=== PATIENT | female | born 1975 | race African-American/Black ===

== ENCOUNTER 2019-03-28 09:23 | Inpatient (IN) | payer MEDICAID, OTHER ==
[~2019-03-28] VITALS: Ht 167.6 cm; Wt 62.7 kg
[~2019-03-28 09:23] MED LIST: PRENAT PO; denies new meds/allergies
[2019-03-28] MEDS ORDERED: ONDANSETRON 4 MG INJ IV STA ×2 (10:18→13:11)
[2019-03-28] MEDS ORDERED: SOD CHLORIDE 0.9% 1,000 ML IV STA (10:18)
[2019-03-28] MEDS ORDERED: morphine 4 MG/ML VIAL IV STA (10:40)
[2019-03-28] MEDS ORDERED: morphine 4 MG/ML VIAL ONE (10:41)
[2019-03-28] MEDS ORDERED: ONDA4TAB8 PO (13:08)
--- NOTE | 2019-03-28 13:10 | ERD ---
ER Documentation Chief Complaint Chief Complaint abdominal pain and vomitting since last night HPI 44-year-old female presents the emergency department complaining of abdominal pain and vomiting. Patient states she was in her usual state of health until last night at which time she began having a nonspecific, visceral type abdominal discomfort. The pain did not localize and did not radiate. Patient had nonbilious, nonbloody emesis. She reported small amounts of diarrhea. She reported no fevers or chills. Patient reports no urinary symptoms or gynecologic symptoms. She continued to vomit and came to the emergency department for evaluation. ROS All systems reviewed and are negative except as per history of present illness. Medications Home Meds Active Scripts Ondansetron Hcl* (Zofran*) 4 Mg Tablet, 4 MG PO Q8H PRN for NAUSEA AND/OR VOMITING, #30 TAB Prov:ELIZ SOUTH 03/28/19 Discontinued Reported Medications Multivit/Min/Fol Ac/Iron/Pren* ( S*) 1 Tab Tab, 1 TAB PO DAILY, TAB 05/13/14 [denies new meds/allergies] No Conflict Check 03/17/13 [None] No Conflict Check 04/08/11 Allergies Allergies: Coded Allergies: Penicillins (Verified Allergy, Unknown, 05/27/13) PMhx/Soc History of Surgery: Yes (PLASTIC SURGERY ON RIGHT ARM AND BELLY BUTTON 1978, EYE) Anesthesia Reaction: No Hx Neurological Disorder: Yes (2002 STROKE, SEIZURE) Hx Respiratory Disorders: No Hx Cardiac Disorders: Yes (IRREGULAR HEARTBEAT MARCH 2011) Hx Psychiatric Problems: No Hx Miscellaneous Medical Probl: No Hx Alcohol Use: Yes (OOC) Hx Substance Use: Yes (MJ) Hx Tobacco Use: Yes (UNK) Smoking Status: Current every day smoker FmHx Noncontributory for chief complaint Physical Exam Vitals Vital Signs Date Temp Pulse Resp B/P (MAP) Pulse Ox O2 O2 Flow FiO2 Time Delivery Rate 03/28/19 98.0 73 17 212/155 99 Room Air 11:54 (174) 03/28/19 99.3 76 19 138/78 99 09:29 (98) Physical Exam GENERAL: The patient is well developed and appropriate for usual state of health in no apparent distress HEENT: Pupils equal, round, and reactive to light. EOMI. There is no scleral icterus. NECK: C-spine is soft and supple, there is no meningismus. There is no cervical lymphadenopathy. LUNGS: Clear to auscultation bilaterally. There are no rales, wheezes or rhonchi. HEART: Regular rate and rhythm, no murmurs, clicks, rubs or gallops. ABDOMEN: Soft, non-tender, non-distended. There are bowel sounds in all four quadrants. No rebound or guarding. EXTREMITIES: There is no peripheral cyanosis or edema. No focal swelling or erythema. NEURO: The patient moves all four extremities with 5/5 strength. Cranial nerves II - XII are intact. Normal gait. Alert and oriented SKIN: There is no apparent rash or petechiae. HEME/LYMPHATIC: There is no evidence of excessive bruising or lymphedema. PSYCHIATRIC: The patient does not appear anxious or depressed. Result Diagram: 03/28/19 1039 03/28/19 1039 Results 24 hrs Laboratory Tests Test 03/28/19 10:38 03/28/19 10:39 Serum HCG, Qualitative NEGATIVE White Blood Count 10.7 10^3/ul Red Blood Count 4.71 10^6/ul Hemoglobin 13.4 g/dl Hematocrit 41.8 % Mean Corpuscular Volume 88.7 fl Mean Corpuscular Hemoglobin 28.5 pg Mean Corpuscular Hemoglobin Concent 32.1 g/dl Red Cell Distribution Width 15.2 % Platelet Count 251 10^3/UL Mean Platelet Volume 11.6 fl Immature Granulocytes % 0.500 % Neutrophils % 91.1 % Lymphocytes % 6.3 % Monocytes % 1.6 % Eosinophils % 0.0 % Basophils % 0.5 % Nucleated Red Blood Cells % 0.0 /100WBC Immature Granulocytes # 0.050 10^3/ul Neutrophils # 9.8 10^3/ul Lymphocytes # 0.7 10^3/ul Monocytes # 0.2 10^3/ul Eosinophils # 0.0 10^3/ul Basophils # 0.1 10^3/ul Nucleated Red Blood Cells # 0.0 10^3/ul Sodium Level 143 mmol/L Potassium Level 3.4 mmol/L Chloride Level 105 mmol/L Carbon Dioxide Level 28 mmol/L Anion Gap 10 Blood Urea Nitrogen 13 mg/dl Creatinine 0.95 mg/dl Est Glomerular Filtrat Rate mL/min > 60 mL/min Glucose Level 114 mg/dl Calcium Level 10.0 mg/dl Total Bilirubin 0.6 mg/dl Direct Bilirubin 0.00 mg/dl Indirect Bilirubin 0.6 mg/dl Aspartate Amino Transf (AST/SGOT) 25 IU/L Alanine Aminotransferase (ALT/SGPT) 36 IU/L Alkaline Phosphatase 116 IU/L Total Protein 8.4 g/dl Albumin 4.5 g/dl Globulin 3.90 g/dl Albumin/Globulin Ratio 1.15 Lipase 28 U/L Current Medications Medications Dose Sig/Catarino Start Time Status Last (Trade) Ordered Route PRN Stop Time Admin Dose Reason Admin Sodium 1,000 ml @ Q1H STAT 03/28/19 DC 03/28/19 Chloride 1,000 mls/hr IV 10: 10:37 03/28/19 11:17 Ondansetron 4 mg ONCE STAT 03/28/19 DC 03/28/19 HCl (Zofran IV 10:18 10:37 Inj) 03/28/19 10:19 Morphine 4 mg ONCE STAT 03/28/19 DC 03/28/19 Sulfate IV 10:40 10:43 (morphine) 03/28/19 10:41 Morphine 4 mg STK-MED 03/28/19 DC Sulfate ONCE .ROUTE 10:41 (morphine) 03/28/19 10:42 Procedures/MDM Patient was taken to a room, seen and evaluated. Comfort measures were initiated. Diagnostic tests were ordered and reviewed. 3 LEAD RHYTHM STRIP: Normal sinus rhythm without ectopy RADIOLOGY: Reviewed with the radiologist REEVALUATION: 1300: Diagnostic tests were appreciated. Serial examinations of the abdomen remained benign. MEDICAL DECISION MAKIN-year-old female presents the emergency part with abdominal pain, nausea and vomiting of uncertain etiology. Initial diagnostic tests do not demonstrate evidence of appendicitis or other high-risk intra- abdominal concerns. She was incidentally noted to have kidney stones, but these are in the kidney and I doubt are causing any significant pain. Her high blood pressure is noted, but she is chronically hypertensive and this does not seem to represent significant endorgan dysfunction. Patient does state that she uses significant amounts of marijuana and this may be the cause of her pain as well. Overall, patient seems to be appropriate for outpatient supportive care with prescriptions provided precautionary instructions given to the patient. Departure Diagnosis: Primary Impression: Vomiting Condition: Stable Patient Instructions: Vomiting (6Y-Adult) Referrals: GEORGIA VALDIVIA (PCP) Additional Instructions: See your doctor for follow-up as discussed. Take a copy of your test results, if appropriate, to this follow-up visit. See your doctor or return here if your symptoms do not improve as expected. At any time, please return to the emergency department for any change or worsening in her symptoms. ELIZ SOUTH March 28, 2019 13:10
[2019-03-28] MEDS ORDERED: AMLODIPINE 10 MG TAB PO ONE (13:30)
[2019-03-28] MEDS ORDERED: hydrALAzine 20 MG INJ IV ONE (16:00)
[2019-03-28] MEDS ORDERED: ENALAPRILAT 1.25 MG INJ IV ONE (18:00)
[2019-03-28] MEDS ORDERED: ASPIRIN 81 MG TAB PO ONE (18:30)
[2019-03-28] MEDS ORDERED: LORAZEPAM 2 MG INJ IV ONE (18:30)
--- NOTE | 2019-03-28 18:49 | EN ---
Date/Time of Note Date/Time of Note DATE: 03/28/19 TIME: 18:38 ER Progress Note Emergency medicine consultation/reevaluation note: This is a 44-year-old woman who initially presented with abdominal pain and vomiting who was scheduled for discharge from the ER after work-up was unremarkable. Prior to discharge the nurse stated her blood pressure was running high and diastolic was over 100 mmHg so I administered hydralazine 20 mg IV x1 and then later for continued elevation I ordered enalapril 1.25 mg IV x1. Patient remained asymptomatic despite hypertension. Due to continued uncontrolled hypertension an EKG was obtained, read by me revealing a sinus tachycardia at 102 bpm, normal axis, narrow QRS complex, with T wave inversions in [address] depressions in precordial lateral leads and evidence of LVH, no ST elevations noted. I spoke to the patient at length at the bedside regarding her past medical history and her symptoms. She denies chest pain or shortness of breath, denies chest pressure or chest discomfort. She states she does feel anxious and admitted to having a history of chronic kidney disease, CAD, AR about a year ago and stent placement just over a year ago at [facility], it seems this is part of her PMH she did not disclose earlier I spoke to the well logging mud analysis captain contract administration coordinator Dr. Randhawa regarding the patient's presentation, symptomatology, BP readings, and EKG findings. He agreed there is no indication to activate code STEMI but recommended oral carvedilol and admission to the telemetry setting. I ordered aspirin 324 mg p.o. for cardioprotective measures, Coreg p.o., and lorazepam 1 mg IV x1. Chest X-ray 1V Interpreted by me: Soft Tissue: No acute abnormalities Bones: No acute abnormalities Mediastinum/Cardiac Silhouette/Lungs: No acute abnormalities Troponin was negative, BNP was elevated over 6000, this may be secondary to her kidney disease or possibly cardiac in etiology. Further management deferred to admitting team and energy scheduler Patient admitted to telemetry setting Diagnostic impression: #1) hypertensive emergency NUNO NEWELL MD March 28, 2019 18:49
[2019-03-28] MEDS ORDERED: MAGNESIUM HYDROXIDE 30ML CUP PO PRN (19:00)
[2019-03-28] MEDS ORDERED: METOCLOPRAMIDE 10 MG INJ IV PRN (19:00)
[2019-03-28] MEDS ORDERED: ALBUTEROL/IPRATROPIUM (NEB) 3 ML AMP HHN PRN (19:00)
[2019-03-28] MEDS ORDERED: ACETAMINOPHEN 325 MG TAB PO PRN (19:00)
[2019-03-28] MEDS ORDERED: ONDANSETRON 4 MG INJ IV PRN (19:00)
[2019-03-28] MEDS ORDERED: LORAZEPAM 2 MG INJ IV PRN (19:00)
[2019-03-28] MEDS ORDERED: NACL 0.9% 3 ML SYG IV SCH (19:00)
[2019-03-28] MEDS ORDERED: NITROGLYCERIN (SL) 0.4 MG TAB SL PRN (19:00)
[2019-03-28] MEDS ORDERED: ONDANSETRON INJ 8 MG in SOD CHLORIDE 0.9% 50 ML IV PRN (19:30)
--- NOTE | 2019-03-28 19:45 | HP ---
DATE OF ADMISSION: 03/28/2019 IDENTIFICATION: This is a 44-year-old female. CHIEF COMPLAINT: Abdominal pain, nausea, vomiting, uncontrolled blood pressure. HISTORY OF PRESENT ILLNESS: A 44-year-old female with past medical history of eye surgery secondary to severe left eye viral infection, SD x2 in the past with stent placement, possible seizure disorder in the past, stroke in 2002, who comes in after experiencing abdominal pain and cramping, also with some nonbilious, nonbloody vomiting symptoms that started last night. She describes the nausea, vomi ting as severe. Apparently, she ate some coffee cake that was in her purse for a day and initially t hought that was the source of her abdominal pain, nausea, vomiting symptoms. She had some small amou nt of diarrhea, but no fevers or chills, no upper or lower GI bleeding. She decided to come into the ER. When she came, the patient is having significant vomiting symptoms. She was also found with se tamera hypertensive urgency, systolic blood pressure 212 over diastolic of 155. She received multiple blood pressure medicines in the ER including Norvasc 10 mg p.o., Coreg 25 mg p.o., hydralazine 20 mg IV and Vasotec 1.25 mg IV and the blood pressure systolic is presently in the 189 to 190 range. She is still having significant nausea, vomiting symptoms as well. Denies any drug use and again, the hermelindo freedman says she had a severe left eye infection that led to an eye surgery removal performed in 9 to [facility] and is scheduled to go back there in the next few weeks for a prosthet ic eye to be placed. When she came in also, she was found with elevated BNP of 6700. The troponin h as been negative x1. PAST MEDICAL HISTORY: As above. ALLERGIES: PENICILLIN. HOME MEDICATIONS: Apparently she takes: 1. Norvasc 10 mg twice a day. 2. Zofran 4 mg q.8 hours p.r.n. PAST SURGICAL HISTORY: Plastic surgery, right arm in the past and also belly button surgery in 1978 and also left eye surgery earlier this year. SOCIAL HISTORY: Occasional alcohol use. She does admit to smoking marijuana and also using tobacco cigarette, smokes a few cigarettes a day for many years. Denies any drug use. FAMILY HISTORY: Noncontributory. PHYSICAL EXAMINATION: VITAL SIGNS: Today, T-max 99.3, pulse 73 to 76, respirations 17 to 19, blood pressure is 223 to 189 systolic over 126 to 106 diastolic, saturating at 100% room air. GENERAL: Shows the patient to be sitting up in bed, appears lethargic, occasionally answering simple questions but passes in and out of consciousness. Significant other is at the bedside. HEENT: Again, she has got severe left eye socket severely disfigured, but the right eye pupil is equ al, round, react to light. Extraocular movements are intact. NECK: Supple, no thyromegaly. LUNGS: Clear to auscultation bilaterally. CARDIOVASCULAR: S1, S2 heard. No rubs or gallops. ABDOMEN: Soft, nontender, nondistended. Normal bowel sounds. No rebound or guarding. MUSCULOSKELETAL: No lower extremity edema bilaterally. NEUROLOGIC: No focal deficits. LABORATORIES: CBC is essentially normal. The comprehensive metabolic panel is normal except potassi um is 3.4. Again troponin is negative x1. BNP is 6070. IMAGING: CT abdomen and pelvis was performed that shows multiple stones conglomerate measuring up to 0.1 cm nonobstructing likely small cysts of the liver, focally severe L5 to S1 degenerative disk dis ease. ASSESSMENT AND PLAN: A 44-year-old female with abdominal pain, nausea, vomiting that began last nigh t, also with hypertensive urgency, history of myocardial infarction x2 in the past with prior stroke in the past. 1. Hypertensive urgency. Again, we will admit the patient. She has already received multiple blood pressure medicines in the ER. There has been small increase in the blood pressure range. We will g o ahead and continue with beta-lior twice a day and also hydrochlorothiazide and also hydralazine IV p.r.n. Consider cardiology consult. Given the history of myocardial infarction, we will rule her out for acute coronary syndrome. Trend her troponins. Check 2 more q.6 hours. Start aspirin, morp jaqueline, oxygen, nitroglycerin. Get speech therapy consult. Check TSH, A1c, lipid panel. 2. Nausea, vomiting likely secondary to #1 and uncontrolled hypertension. Continue antiemetics. Co ntinue Reglan and Zofran p.r.n. Consider adding Tigan. Consider low-dose IV fluids as well. 3. Myocardial infarction x2 in the past. Again, we will get a cardiology consult. Rule out for acu te coronary syndrome as well. 4. History of left eye severe infection and possible removal. Again, she follows with the brii lamb at [facility] for that. Continue to monitor for now. 5. History of marijuana use and alcohol use. Counseled on cessation. Monitor for signs of withdraw al. 6. Gastrointestinal prophylaxis. H2 lior. 7. Deep venous thrombosis prophylaxis. SCDs. Dictated By: SERGE VILLEDA Conf#: [id number] DID#: [id number] CC: LEAH HINES MD;*EndCC*
[2019-03-28 20:00] VITALS: PULSE 77
[2019-03-28 20:30] VITALS: Ht 167.6 cm; Wt 62.7 kg
[2019-03-28 20:40] VITALS: PULSE 75
[2019-03-29] VITALS (13 sets, daily range): BP systolic 142–205; BP diastolic 83–108; PULSE 54–79; RESP 16–18
[2019-03-29] MEDS: HYDROCHLOROTHIAZIDE 25 MG TAB PO SCH (08:13)
[2019-03-29] MEDS: FAMOTIDINE 20 MG INJ IV SCH (08:13)
[2019-03-29] MEDS: ASPIRIN (EC) 325 MG TAB PO SCH (08:13)
[2019-03-29] MEDS: HYDROCODONE/APAP (5/325) TAB PO PRN ×3 (08:17→23:03)
[2019-03-29] MEDS ORDERED: AMLODIPINE 10 MG TAB PO SCH (09:00)
--- NOTE | 2019-03-29 11:03 | PN ---
Date/Time of Note Date/Time of Note DATE: 03/29/19 TIME: 11:00 Assessment/Plan VTE Prophylaxis Risk score (from Nsg)>0 risk: 2 SCD applied (from Nsg): Yes Pharmacological prophylaxis: other Lines/Catheters IV Catheter Type (from Nrsg): Saline Lock Urinary Cath still in place: No Assessment/Plan Hospital Course S: Patient's blood pressure in the high normal range now, per nursing staff she did take her p.o. blood pressure medicines this morning. Patient has less nausea symptoms. Still waiting to be seen by cardiology team. O: VS- see below PHYSICAL EXAMINATION: GENERAL: Distress HEENT: severe left eye socket severely disfigured, but the right eye pupil is equal, round, react to light. Extraocular movement is intact. NECK: Supple, no thyromegaly. LUNGS: Clear to auscultation bilaterally. CARDIOVASCULAR: S1, S2 heard. No rubs or gallops. ABDOMEN: Soft, nontender, nondistended. Normal bowel sounds. No rebound or guarding. MUSCULOSKELETAL: No lower extremity edema bilaterally. NEUROLOGIC: No focal deficits. ASSESSMENT AND PLAN: 44-year-old female with abdominal pain, nausea, vomiting that began last night, also with hypertensive urgency, history of myocardial infarction x2 in the past with prior stroke in the past. 1. Hypertensive urgency-this has resolved now, but blood pressure is in the high normal range presently. She received multiple blood pressure medicines in the ER. - continue with beta-lior twice a day and also hydrochlorothiazide and also hydralazine IV p.r.n. - Follow-up recommendations from cardiology consult. 2. Nausea, vomiting -improving now, likely secondary to #1 and uncontrolled hypertension. -Monitor, continue antiemetics Reglan and Zofran p.r.n. 3. CAD with myocardial infarction x2 in the past. Patient denies chest pain, first troponin is negative -Monitor blood pressure, follow-up second and third troponin levels. -Follow-up cardiology consult medicines, will try to obtain medical records from [facility] where patient apparently was treated there a year ago for [place]. 4. History of left eye severe infection and possible removal. Again, she follows with the care there at [facility] for that. - Continue to monitor for now, consider wound care consult if necessary, and try to obtain medical records from [facility] for this. Again she is apparently awaiting possible prosthetic left eye insertion at their hospital in the next month or so. 5. History of marijuana use and alcohol use. -Counseled on cessation. - Monitor for signs of withdrawal. 6. Gastrointestinal prophylaxis. H2 lior. 7. Deep venous thrombosis prophylaxis. SCDs. Result Diagram: 03/29/1918 03/29/19 0618 Results 24hrs Laboratory Tests Test 03/28/19 18:13 03/29/19 06:18 Troponin I 0.029 B-Type Natriuretic Peptide 6070 H White Blood Count 13.0 #H Red Blood Count 4.64 Hemoglobin 13.5 Hematocrit 41.5 Mean Corpuscular Volume 89.4 Mean Corpuscular Hemoglobin 29.1 Mean Corpuscular Hemoglobin Concent 32.5 Red Cell Distribution Width 15.7 H Platelet Count 239 Mean Platelet Volume 11.8 H Immature Granulocytes % 0.300 Neutrophils % 84.3 H Lymphocytes % 9.6 L Monocytes % 5.0 Eosinophils % 0.3 Basophils % 0.5 Nucleated Red Blood Cells % 0.0 Immature Granulocytes # 0.040 H Neutrophils # 10.9 H Lymphocytes # 1.2 Monocytes # 0.7 Eosinophils # 0.0 Basophils # 0.1 Nucleated Red Blood Cells # 0.0 Sodium Level 139 Potassium Level 3.5 Chloride Level 105 Carbon Dioxide Level 26 Anion Gap 8 Blood Urea Nitrogen 16 Creatinine 0.91 Est Glomerular Filtrat Rate mL/min > 60 Glucose Level 89 Hemoglobin A1c 5.4 Calcium Level 9.2 Phosphorus Level 3.3 Magnesium Level 2.0 Triglycerides Level 91 Cholesterol Level 168 LDL Cholesterol, Calculated 96 HDL Cholesterol 54 Cholesterol/HDL Ratio 3.1 Thyroid Stimulating Hormone (TSH) 0.782 Exam/Review of Systems Exam Vitals Vital Signs Date Temp Pulse Resp B/P (MAP) Pulse Ox O2 O2 Flow FiO2 Time Delivery Rate 03/29/19 60 178/100 10:43 (126) 03/29/19 97.6 16 100 07:35 03/28/19 Room Air 20:08 Results Results 24hrs Laboratory Tests Test 03/28/19 18:13 03/29/19 06:18 Troponin I 0.029 B-Type Natriuretic Peptide 6070 H White Blood Count 13.0 #H Red Blood Count 4.64 Hemoglobin 13.5 Hematocrit 41.5 Mean Corpuscular Volume 89.4 Mean Corpuscular Hemoglobin 29.1 Mean Corpuscular Hemoglobin Concent 32.5 Red Cell Distribution Width 15.7 H Platelet Count 239 Mean Platelet Volume 11.8 H Immature Granulocytes % 0.300 Neutrophils % 84.3 H Lymphocytes % 9.6 L Monocytes % 5.0 Eosinophils % 0.3 Basophils % 0.5 Nucleated Red Blood Cells % 0.0 Immature Granulocytes # 0.040 H Neutrophils # 10.9 H Lymphocytes # 1.2 Monocytes # 0.7 Eosinophils # 0.0 Basophils # 0.1 Nucleated Red Blood Cells # 0.0 Sodium Level 139 Potassium Level 3.5 Chloride Level 105 Carbon Dioxide Level 26 Anion Gap 8 Blood Urea Nitrogen 16 Creatinine 0.91 Est Glomerular Filtrat Rate mL/min > 60 Glucose Level 89 Hemoglobin A1c 5.4 Calcium Level 9.2 Phosphorus Level 3.3 Magnesium Level 2.0 Triglycerides Level 91 Cholesterol Level 168 LDL Cholesterol, Calculated 96 HDL Cholesterol 54 Cholesterol/HDL Ratio 3.1 Thyroid Stimulating Hormone (TSH) 0.782 Medications Medication Current Medications IV Flush (NS 3 ml) 3 ml PER PROTOCOL IV ; Start 03/28/19 at 19:00 Metoclopramide HCl (Reglan) 10 mg Q6H PRN IV NAUSEA/VOMITING; Start 03/28/19 at 19:00 Acetaminophen (Tylenol Tab) 650 mg Q6H PRN PO .PAIN 1-3 OR TEMP; Start 03/28/19 at 19:00 Acetaminophen/ Hydrocodone Bitart (Sterling (5/325)) 1 tab Q6H PRN PO .MOD PAIN 4- 6 Last administered on 03/29/19at 08:17; Admin Dose 1 TAB; Start 03/28/19 at 19:00 Morphine Sulfate (morphine) 2 mg Q4H PRN IV .SEVERE PAIN 7-10; Start 03/28/19 at 19:00 Docusate Sodium (Colace) 100 mg Q12H PRN PO .CONSTIPATION; Start 03/28/19 at 19:00 Magnesium Hydroxide (Milk Of Mag) 30 ml DAILY PRN PO .CONSTIPATION; Start 03/28/19 at 19:00 Famotidine (Pepcid Iv) 20 mg DAILY IV Last administered on 03/29/19at 08:13; Admin Dose 20 MG; Start 03/29/19 at 09:00 Lorazepam (Ativan) 0.5 mg Q6H PRN IV ANXIETY; Start 03/28/19 at 19:00 Albuterol/ Ipratropium (Duoneb) 3 ml Q4H RESP THERAPY PRN HHN SHORTNESS OF BREATH; Start 03/28/19 at 19:00 Hydralazine HCl (Apresoline) 10 mg Q6H PRN IV ELEVATED BLOOD PRESSURE; Start 03/28/19 at 19:00 Clonidine (Catapres) 0.1 mg Q6H PRN PO ELEVATED BLOOD PRESSURE; Start 03/28/19 at 19:00 Nitroglycerin (Nitroglycerin (Sl Tab) 0.4 Mg) 1 tab Q5M PRN SL ANGINA; Start 03/28/19 at 19:00 Aspirin (Ecotrin) 325 mg DAILY PO Last administered on 03/29/19at 08:13; Admin Dose 325 MG; Start 03/29/19 at 09:00 Hydrochlorothiazide (Hydrochlorothiazide) 25 mg DAILY PO Last administered on 03/29/19at 08:13; Admin Dose 25 MG; Start 03/29/19 at 09:00 Carvedilol (Coreg) 6.25 mg BID PO Last administered on 03/29/19at 08:13; Admin Dose 6.25 MG; Start 03/29/19 at 09:00 Ondansetron HCl 8 mg/Sodium Chloride 54 ml @ 216 mls/hr Q6H PRN IV NAUSEA AND/OR VOMITING; Start 03/28/19 at 19:30 SERGE IRENE March 29, 2019 11:03
[2019-03-29] MEDS: hydrALAzine 20 MG INJ IV PRN ×2 (11:43→20:08)
[2019-03-29] MEDS: morphine 2 MG INJ IV PRN (13:07)
--- NOTE | 2019-03-29 13:55 | RADRPT ---
Echocardiogram Report Patient Name: DIEGO MCINTOSHPatient ID: [id number] : 1975 (44y 3m)Study Date: 03/29/2019 8:46:42 AM Gender: FAccession #: [id number] Tech: [facility] [place] Location: Ref.Physician: SERGE IRENE Height(Cm): 170 BSA: 1.82Weight(Kg): 69.9 Quality: AdequateAccount #: Procedures: Echocardiographic Report: Transthoracic echocardiogram with complete 2D, M-Mode, and doppler examination. Indications: Chest Pain, and Hypertension. Measurements: 2D/M Mode Doppler Measurement Value Normal Range Measurement Value Normal Range LA Volume 85.1 [ 22.0 - 52.0 ] ml AV Peak Leo 1.0 [ 100.0 - 170.0 ] cm /sec LA Volume Index 47 [ 16 - 34 ] ml/m2 AV Peak PG 4.0 [ 2.0 - 9.0 ] mmHg LVIDd 2D 3.7 [ 3.8 - 5.2 ] cm LVOT Peak Leo 1.0 [ 70.0 - 110.0 ] cm/ sec LVIDs 2D 2.9 [ 2.2 - 3.5 ] cm LVOT Peak PG 4.0 [ 2.0 - 6.0 ] mmHg LVPWd 2D 2.0 [ 0.6 - 0.9 ] cm Lat E` Leo 0.0 [ 10.0 - 15.0 ] cm/s ec IVSd 2D 2.0 [ 0.6 - 0.9 ] cm Lateral E/E` 17.3 [ 1.0 - 2.0 ] ratio AoR Diam 2D 3.0 [ 2.3 - 3.1 ] cm Med E` Leo 0.0 cm/sec EF 2D 43.2 [ 54.0 - 74.0 ] percent TAPSE 2.1 [ 1.7 - 3.0 ] cm LA Dimen 2D 4.4 [ 2.7 - 3.8 ] cm TR Peak Leo 3.7 [ 100.0 - 280.0 ] cm /sec TR Peak PG 56.0 mmHg PV Peak Leo 0.8 [ 40.0 - 80.0 ] cm/s ec PV Peak PG 2.0 mmHg RVSP 66.0 [ 10.0 - 36.0 ] mmHg RA Pressure 10.0 mmHg Findings: Left Ventricle: Normal left ventricular systolic function. Normal left ventricular cavity size. Severe concentric left ventricular hypertrophy. Ejection fraction is visually estimated at 50-60 %. Tissue Doppler/Mitral Doppler indices are most consistent with pseudonormalization with mildly elevated left atrial pressure (Stage II diastolic dysfunction), patient couldn't Valsalva has too much pain. E/E'= 17. No left ventricular outflow tract gradient at rest. Right Ventricle: Normal right ventricular size. Normal right ventricular systolic function. Left Atrium: There is severe enlargement of left atrium that is best appreciated by PAULINA of 51 cm/m2. Right Atrium: The right atrium is normal in size. Atrial Septum: Normal atrial septum. Mitral Valve: Normal appearance of the mitral valve. Mitral valve leaflets appear mildly thickened. Mild to moderate mitral valve regurgitation. Aortic Valve: Normal appearance of the aortic valve. No significant aortic stenosis or insufficiency. Normal trileaflet aortic valve structure. Tricuspid Valve: Normal appearance of the tricuspid valve. Estimated peak PA systolic pressure 66 mmHg. There is moderate tricuspid regurgitation. Pulmonic Valve: Normal pulmonic valve appearance. No evidence of pulmonic regurgitation. Pericardium: Normal pericardium with no significant pericardial effusion. Aorta: Normal aortic root. IVC: Normal size and normal respiratory collapse consistent with normal right atrial pressure. Pulmonary Artery: Normal pulmonary artery size. Conclusions: Normal left ventricular systolic function. Normal left ventricular cavity size. Severe concentric left ventricular hypertrophy. Ejection fraction is visually estimated at 50-60 %. Tissue Doppler/Mitral Doppler indices are most consistent with pseudonormalization with mildly elevated left atrial pressure (Stage II diastolic dysfunction), patient couldn't Valsalva has too much pain. E/E'= 17. No left ventricular outflow tract gradient at rest. There is severe enlargement of left atrium that is best appreciated by PAULINA of 51 cm/m2. Normal appearance of the mitral valve. Mitral valve leaflets appear mildly thickened. Mild to moderate mitral valve regurgitation. Normal appearance of the aortic valve. No significant aortic stenosis or insufficiency. Normal trileaflet aortic valve structure. Normal appearance of the tricuspid valve. Estimated peak PA systolic pressure 66 mmHg. There is moderate tricuspid regurgitation. Normal size and normal respiratory collapse consistent with normal right atrial pressure. Electronically Signed By: Wood Randhawa 2019-03-29 13:54:23 PDT
--- NOTE | 2019-03-29 15:31 | CONS ---
Assessment/Plan Assessment/Plan Hospital Course (Demo Recall) Hypertensive urgency Severe LVH consistent with hypertensive heart disease but normal coronary artery per recent cardiac catheterizations Status post left eye enucleation Urine positive for amphetamine use Abnormal EKG due to LVH Headaches and presence of severe hypertension rule out CVA Recommendations We will need to get the blood pressure better controlled. I will order stat head CT Clonidine will be added to be given as needed. Cardiac atenolol to be increased. Aldactone will be added as well to her regimen I tried to explain to the patient against advising her against using any drugs however she got very angry at me and stated that she is not using drugs and she does not know why amphetamine was positive in her urine Thank you for his referral. We will continue to follow along with you until Dr. Huang returns on Sunday LEAH HINES MD F[facility] Consultation Date/Type/Reason Admit Date/Time March 28, 2019 at 18:51 Date of Consultation: March 29, 2019 Type of Consult Cardiology Reason for Consultation htn Requesting Provider: SERGE IRENE Date/Time of Note DATE: 03/29/19 TIME: 15:24 Hx of Present Illness Interventional cardiology consultation note (covering DR Quintero) Chief complaint: Headache not feeling well shaking Reason for consult: Hypertensive urgency History of present illness: Thank you for this referral. History was informed the patient with discussion multiple physician review of the old chart This is a 44-year-old -[place] female with history of hypertension who came to the emergency multiple nonspecific complaints. Patient's of the past 2 weeks she has had headache not feeling well shaking. Noted to be severely hypertensive. She was also tachycardic. She admits to using marijuana but denies any use of amphetamine use however her urine tox has shown amphetamine positive. When I explained to her about the findings she got very upset at me and tells me that may be her Umu was contaminated with amphetamines Allergies: Penicillin Medications were reviewed as per medical reconciliation sheet but I am not clear if she has been taking it regularly at home or not Family history: Positive [place] Social history: Smokes actively did not denies any use of alcohol use. 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 Again review of the coronary angiography report shows a left main was normal LAD was normal left circumflex was normal right coronary artery with no significant disease ejection fraction of 70 to 75% 1+ mitral regurgitation. She also said that she has had a another angiogram done at [facility] a few months ago Review of system: Patient denies all others except for above-mentioned Past Medical History Home Meds Active Scripts Ondansetron Hcl* (Zofran*) 4 Mg Tablet, 4 MG PO Q8H PRN for NAUSEA AND/OR VOMITING, #30 TAB Prov:ELIZ SOUTH 03/28/19 Discontinued Reported Medications Multivit/Min/Fol Ac/Iron/Pren* ( S*) 1 Tab Tab, 1 TAB PO DAILY, TAB 05/13/14 [denies new meds/allergies] No Conflict Check 03/17/13 [None] No Conflict Check 04/08/11 Medications Current Medications IV Flush (NS 3 ml) 3 ml PER PROTOCOL IV ; Start 03/28/19 at 19:00 Metoclopramide HCl (Reglan) 10 mg Q6H PRN IV NAUSEA/VOMITING; Start 03/28/19 at 19:00 Acetaminophen (Tylenol Tab) 650 mg Q6H PRN PO .PAIN 1-3 OR TEMP; Start 03/28/19 at 19:00 Acetaminophen/ Hydrocodone Bitart ([place] (5/325)) 1 tab Q6H PRN PO .MOD PAIN 4- 6 Last administered on 03/29/19at 14:26; Admin Dose 1 TAB; Start 03/28/19 at 19:00 Morphine Sulfate (morphine) 2 mg Q4H PRN IV .SEVERE PAIN 7-10 Last administered on 03/29/19at 13:07; Admin Dose 2 MG; Start 03/28/19 at 19:00 Docusate Sodium (Colace) 100 mg Q12H PRN PO .CONSTIPATION; Start 03/28/19 at 19:00 Magnesium Hydroxide (Milk Of Mag) 30 ml DAILY PRN PO .CONSTIPATION; Start 03/28/19 at 19:00 Famotidine (Pepcid Iv) 20 mg DAILY IV Last administered on 03/29/19at 08:13; Admin Dose 20 MG; Start 03/29/19 at 09:00 Lorazepam (Ativan) 0.5 mg Q6H PRN IV ANXIETY; Start 03/28/19 at 19:00 Albuterol/ Ipratropium (Duoneb) 3 ml Q4H RESP THERAPY PRN HHN SHORTNESS OF BREATH; Start 03/28/19 at 19:00 Hydralazine HCl (Apresoline) 10 mg Q6H PRN IV ELEVATED BLOOD PRESSURE Last administered on 03/29/19at 11:43; Admin Dose 10 MG; Start 03/28/19 at 19:00 Clonidine (Catapres) 0.1 mg Q6H PRN PO ELEVATED BLOOD PRESSURE; Start 03/28/19 at 19:00 Nitroglycerin (Nitroglycerin (Sl Tab) 0.4 Mg) 1 tab Q5M PRN SL ANGINA; Start 03/28/19 at 19:00 Aspirin (Ecotrin) 325 mg DAILY PO Last administered on 03/29/19at 08:13; Admin Dose 325 MG; Start 03/29/19 at 09:00 Hydrochlorothiazide (Hydrochlorothiazide) 25 mg DAILY PO Last administered on 03/29/19at 08:13; Admin Dose 25 MG; Start 03/29/19 at 09:00 Carvedilol (Coreg) 6.25 mg BID PO Last administered on 03/29/19at 08:13; Admin Dose 6.25 MG; Start 03/29/19 at 09:00 Ondansetron HCl 8 mg/Sodium Chloride 54 ml @ 216 mls/hr Q6H PRN IV NAUSEA AND/OR VOMITING; Start 03/28/19 at 19:30 Allergies: Coded Allergies: Penicillins (Verified Allergy, Unknown, 05/27/13) Social History Smoking Status: Current every day smoker Exam/Review of Systems Vital Signs Vitals Vital Signs Date Temp Pulse Resp B/P (MAP) Pulse Ox O2 O2 Flow FiO2 Time Delivery Rate 03/29/19 66 12:37 03/29/19 97.6 16 205/105 100 11:18 (138) 03/28/19 Room Air 20:08 Intake and Output 03/28/19 03/28/19 03/29/19 1515:00 23:00 07:00 IntakeIntake Total 0 ml BalanceBalance 0 ml Exam Exam General: Appears anxious otherwise in no acute distress HEENT: NC/AT. There is with left eye enucleation NECK: NO JVD. no stridor. CV: RRR. systolic murmur; no gallop or rubs. PULM: no wheezing or rhonchi. GI: SOFT, NT, ND, no rebound or guarding Extremity: trace B/L LE edema. no clubbing. neuro: awake and alert, OX3. Psych: Anxious with labile mood rectal: deferred EKG shows normal sinus rhythm. LVH with ST-T abnormalities Echocardiogram was personally reviewed and normal LV size and systolic function. There is severe left ventricular hypertrophy noted though. There is also pulmonary hypertension Labs Result Diagram: 03/29/19 0618 03/29/19 0618 Results 24hrs Laboratory Tests Test 03/28/19 18:13 03/29/19 06:18 03/29/19 12:11 03/29/19 13:10 Troponin I 0.029 0.046 B-Type Natriuretic 6070 H Peptide White Blood Count 13.0 #H Red Blood Count 4.64 Hemoglobin 13.5 Hematocrit 41.5 Mean Corpuscular 89.4 Volume Mean Corpuscular 29.1 Hemoglobin Mean Corpuscular 32.5 Hemoglobin Concent Red Cell 15.7 H Distribution Width Platelet Count 239 Mean Platelet Volume 11.8 H Immature 0.300 Granulocytes % Neutrophils % 84.3 H Lymphocytes % 9.6 L Monocytes % 5.0 Eosinophils % 0.3 Basophils % 0.5 Nucleated Red Blood 0.0 Cells % Immature 0.040 H Granulocytes # Neutrophils # 10.9 H Lymphocytes # 1.2 Monocytes # 0.7 Eosinophils # 0.0 Basophils # 0.1 Nucleated Red Blood 0.0 Cells # Sodium Level 139 Potassium Level 3.5 Chloride Level 105 Carbon Dioxide Level 26 Anion Gap 8 Blood Urea Nitrogen 16 Creatinine 0.91 Est Glomerular > 60 Filtrat Rate mL/min Glucose Level 89 Hemoglobin A1c 5.4 Calcium Level 9.2 Phosphorus Level 3.3 Magnesium Level 2.0 Triglycerides Level 91 Cholesterol Level 168 LDL Cholesterol, 96 Calculated HDL Cholesterol 54 Cholesterol/HDL 3.1 Ratio Thyroid Stimulating 0.782 Hormone (TSH) Urine Color YELLOW Urine Clarity CLOUDY A Urine pH 5.0 Urine Specific 1.019 Kimberly Urine Ketones NEGATIVE Urine Nitrite NEGATIVE Urine Bilirubin NEGATIVE Urine Urobilinogen NEGATIVE Urine Leukocyte 2+ H Esterase Urine Microscopic 6 H RBC Urine Microscopic 96 H WBC Urine Squamous FEW Epithelial Cells Urine Bacteria FEW A Urine Mucus FEW A Urine Hemoglobin 1+ H Urine Glucose NEGATIVE Urine Total Protein NEGATIVE Urine Opiates Screen Positive Urine Barbiturates Negative Urine Amphetamines POSITIVE Screen Urine Negative Benzodiazepines Screen Urine Cocaine Screen Negative Urine Cannabinoids Positive Medications Medications Current Medications IV Flush (NS 3 ml) 3 ml PER PROTOCOL IV ; Start 03/28/19 at 19:00 Metoclopramide HCl (Reglan) 10 mg Q6H PRN IV NAUSEA/VOMITING; Start 03/28/19 at 19:00 Acetaminophen (Tylenol Tab) 650 mg Q6H PRN PO .PAIN 1-3 OR TEMP; Start 03/28/19 at 19:00 Acetaminophen/ Hydrocodone Bitart ([place] (5/325)) 1 tab Q6H PRN PO .MOD PAIN 4- 6 Last administered on 03/29/19at 14:26; Admin Dose 1 TAB; Start 03/28/19 at 19:00 Morphine Sulfate (morphine) 2 mg Q4H PRN IV .SEVERE PAIN 7-10 Last administered on 03/29/19at 13:07; Admin Dose 2 MG; Start 03/28/19 at 19:00 Docusate Sodium (Colace) 100 mg Q12H PRN PO .CONSTIPATION; Start 03/28/19 at 19:00 Magnesium Hydroxide (Milk Of Mag) 30 ml DAILY PRN PO .CONSTIPATION; Start 03/28 at 19:00 Famotidine (Pepcid Iv) 20 mg DAILY IV Last administered on 03/29/19at 08:13; Admin Dose 20 MG; Start 03/29/19 at 09:00 Lorazepam (Ativan) 0.5 mg Q6H PRN IV ANXIETY; Start 03/28/19 at 19:00 Albuterol/ Ipratropium (Duoneb) 3 ml Q4H RESP THERAPY PRN HHN SHORTNESS OF BREATH; Start 03/28/19 at 19:00 Hydralazine HCl (Apresoline) 10 mg Q6H PRN IV ELEVATED BLOOD PRESSURE Last administered on 03/29/19at 11:43; Admin Dose 10 MG; Start 03/28/19 at 19:00 Clonidine (Catapres) 0.1 mg Q6H PRN PO ELEVATED BLOOD PRESSURE; Start 03/28/19 at 19:00 Nitroglycerin (Nitroglycerin (Sl Tab) 0.4 Mg) 1 tab Q5M PRN SL ANGINA; Start 03/28/19 at 19:00 Aspirin (Ecotrin) 325 mg DAILY PO Last administered on 03/29/19 08:13; Admin Dose 325 MG; Start 03/29/19 at 09:00 Hydrochlorothiazide (Hydrochlorothiazide) 25 mg DAILY PO Last administered on 03/29/19 08:13; Admin Dose 25 MG; Start 03/29/19 at 09:00 Carvedilol (Coreg) 6.25 mg BID PO Last administered on 03/29/19 08:13; Admin Dose 6.25 MG; Start 03/29/19 at 09:00 Ondansetron HCl 8 mg/Sodium Chloride 54 ml @ 216 mls/hr Q6H PRN IV NAUSEA AND/OR VOMITING; Start 03/28/19 at 19:30 LEAH HINES MD March 29, 2019 15:31
[2019-03-29] MEDS: SPIRONOLACTONE 25 MG TAB PO SCH (15:43)
[2019-03-30] VITALS (13 sets, daily range): BP systolic 134–182; BP diastolic 76–114; PULSE 51–77; RESP 16–19
[2019-03-30] MEDS: morphine 2 MG INJ IV PRN ×3 (04:38→21:29)
[2019-03-30] MEDS: SPIRONOLACTONE 25 MG TAB PO SCH (05:26)
[2019-03-30] MEDS: ASPIRIN (EC) 325 MG TAB PO SCH (08:19)
[2019-03-30] MEDS: HYDROCHLOROTHIAZIDE 25 MG TAB PO SCH (08:19)
[2019-03-30] MEDS: FAMOTIDINE 20 MG INJ IV SCH (08:19)
[2019-03-30] MEDS: HYDROCODONE/APAP (5/325) TAB PO PRN ×3 (08:29→23:19)
--- NOTE | 2019-03-30 13:04 | CONS ---
Consult Date/Type/Reason Admit Date/Time March 28, 2019 at 18:51 Initial Consult Date 03/29/19 Type of Consultation: cv Requesting Provider: SERGE IRENE Date/Time of Note DATE: 03/30/19 TIME: 13:01 Subjective Cardiology follow-up progress note for Dr. Quintero S: Discussed with the staff and telemetry was reviewed patient remains sinus rhythm no chest pain or pressure now. Her blood pressure is better controlled. She reports that she had a little bit of headache this morning but is much better now O: General: Appears anxious otherwise in no acute distress HEENT: NC/AT. There is with left eye enucleation NECK: NO JVD. no stridor. CV: RRR. systolic murmur; no gallop or rubs. PULM: no wheezing or rhonchi. GI: SOFT, NT, ND, no rebound or guarding Extremity: trace B/L LE edema. no clubbing. neuro: awake and alert, OX3. Psych: Calm rectal: deferred EKG shows normal sinus rhythm. LVH with ST-T abnormalities Echocardiogram was personally reviewed and normal LV size and systolic function. There is severe left ventricular hypertrophy noted though. There is also pulmonary hypertension Objective Vitals Vital Signs Date Temp Pulse Resp B/P (MAP) Pulse Ox O2 O2 Flow FiO2 Time Delivery Rate 03/30/19 68 12:31 03/30/19 98.3 16 143/86 100 11:12 (105) 03/28/19 Room Air 20:08 Intake and Output 03/29/19 03/29/19 03/30/19 1515:00 23:00 07:00 IntakeIntake Total 900 ml 600 ml BalanceBalance 900 ml 600 ml Results/Medications Result Diagram: 03/30/19 0730 03/30/19 0730 Results 24 hrs Laboratory Tests Test 03/29/19 13:10 03/29/19 17:09 03/30/19 07:30 Urine Color YELLOW Urine Clarity CLOUDY A Urine pH 5.0 Urine Specific [place] 1.019 Urine Ketones NEGATIVE Urine Nitrite NEGATIVE Urine Bilirubin NEGATIVE Urine Urobilinogen NEGATIVE Urine Leukocyte Esterase 2+ H Urine Microscopic RBC 6 H Urine Microscopic WBC 96 H Urine Squamous Epithelial Cells FEW Urine Bacteria FEW A Urine Mucus FEW A Urine Hemoglobin 1+ H Urine Glucose NEGATIVE Urine Total Protein NEGATIVE Urine Opiates Screen Positive Urine Barbiturates Negative Urine Amphetamines Screen POSITIVE Urine Benzodiazepines Screen Negative Urine Cocaine Screen Negative Urine Cannabinoids Positive Troponin I 0.034 White Blood Count 9.0 # Red Blood Count 4.63 Hemoglobin 13.5 Hematocrit 40.7 Mean Corpuscular Volume 87.9 Mean Corpuscular Hemoglobin 29.2 Mean Corpuscular Hemoglobin Concent 33.2 Red Cell Distribution Width 15.2 H Platelet Count 194 Mean Platelet Volume 11.8 H Immature Granulocytes % 0.200 Neutrophils % 69.6 Lymphocytes % 19.9 Monocytes % 8.0 Eosinophils % 1.6 Basophils % 0.7 Nucleated Red Blood Cells % 0.0 Immature Granulocytes # 0.020 Neutrophils # 6.2 Lymphocytes # 1.8 Monocytes # 0.7 Eosinophils # 0.1 Basophils # 0.1 Nucleated Red Blood Cells # 0.0 Sodium Level 137 Potassium Level 3.4 L Chloride Level 102 Carbon Dioxide Level 28 Anion Gap 7 Blood Urea Nitrogen 23 H Creatinine 0.97 Est Glomerular Filtrat Rate mL/min > 60 Glucose Level 103 Calcium Level 8.5 Home Meds Active Scripts Ondansetron Hcl* (Zofran*) 4 Mg Tablet, 4 MG PO Q8H PRN for NAUSEA AND/OR VOMITING, #30 TAB Prov:ELIZ SOUTH 03/28/19 Discontinued Reported Medications Multivit/Min/Fol Ac/Iron/Pren* ( S*) 1 Tab Tab, 1 TAB PO DAILY, TAB 05/13/14 [denies new meds/allergies] No Conflict Check 03/17/13 [None] No Conflict Check 04/08/11 Medications Current Medications IV Flush (NS 3 ml) 3 ml PER PROTOCOL IV ; Start 03/28/19 at 19:00 Metoclopramide HCl (Reglan) 10 mg Q6H PRN IV NAUSEA/VOMITING; Start 03/28/19 at 19:00 Acetaminophen (Tylenol Tab) 650 mg Q6H PRN PO .PAIN 1-3 OR TEMP; Start 03/28/19 at 19:00 Acetaminophen/ Hydrocodone Bitart ([place] (5/325)) 1 tab Q6H PRN PO .MOD PAIN 4- 6 Last administered on 03/30/19at 08:29; Admin Dose 1 TAB; Start 03/28/19 at 19:00 Morphine Sulfate (morphine) 2 mg Q4H PRN IV .SEVERE PAIN 7-10 Last administered on 03/30/19at 04:38; Admin Dose 2 MG; Start 03/28/19 at 19:00 Docusate Sodium (Colace) 100 mg Q12H PRN PO .CONSTIPATION; Start 03/28/19 at 19:00 Magnesium Hydroxide (Milk Of Mag) 30 ml DAILY PRN PO .CONSTIPATION; Start 03/28/19 at 19:00 Famotidine (Pepcid Iv) 20 mg DAILY IV Last administered on 03/30/19at 08:19; Admin Dose 20 MG; Start 03/29/19 at 09:00 Lorazepam (Ativan) 0.5 mg Q6H PRN IV ANXIETY; Start 03/28/19 at 19:00 Albuterol/ Ipratropium (Duoneb) 3 ml Q4H RESP THERAPY PRN HHN SHORTNESS OF BREATH; Start 03/28/19 at 19:00 Hydralazine HCl (Apresoline) 10 mg Q6H PRN IV ELEVATED BLOOD PRESSURE Last administered on 03/29/19at 20:08; Admin Dose 10 MG; Start 03/28/19 at 19:00 Nitroglycerin (Nitroglycerin (Sl Tab) 0.4 Mg) 1 tab Q5M PRN SL ANGINA; Start 03/28/19 at 19:00 Aspirin (Ecotrin) 325 mg DAILY PO Last administered on 03/30/19 08:19; Admin Dose 325 MG; Start 03/29/19 at 09:00 Hydrochlorothiazide (Hydrochlorothiazide) 25 mg DAILY PO Last administered on 03/30/19 08:19; Admin Dose 25 MG; Start 03/29/19 at 09:00 Ondansetron HCl 8 mg/Sodium Chloride 54 ml @ 216 mls/hr Q6H PRN IV NAUSEA AND/OR VOMITING; Start 03/28/19 at 19:30 Carvedilol (Coreg) 12.5 mg Q8 PO Last administered on 03/30/19 05:26; Admin Dose 12.5 MG; Start 03/29/19 at 15:30 Spironolactone (Aldactone) 25 mg DAILY@0600 PO Last administered on 03/30/19 05:26; Admin Dose 25 MG; Start 03/29/19 at 16:00 Clonidine (Catapres) 0.1 mg Q4H PRN PO SBP>180 Last administered on 03/30/19at 05:25; Admin Dose 0.1 MG; Start 03/29/19 at 16:00 Assessment/Plan Hospital Course (Demo Recall) Hypertensive urgency Severe LVH consistent with hypertensive heart disease but normal coronary artery per recent cardiac catheterizations Status post left eye enucleation Urine positive for amphetamine use Abnormal EKG due to LVH Headaches and presence of severe hypertension but no evidence of CVA on CT Recommendations We will need to get the blood pressure better controlled. Increase the Aldactone to 50 mg p.o. daily. Patient might have a component of hyperaldosteronism. Continue with rest of her cardiac care Thank you for his referral. We will continue to follow along with you until Dr. Huang returns on Sunday LEAH HINES MD [facility] LEAH HINES MD March 30, 2019 13:04
[2019-03-30] MEDS ORDERED: ENALAPRILAT 1.25 MG INJ IV PRN (17:00)
--- NOTE | 2019-03-30 17:14 | PN ---
Date/Time of Note Date/Time of Note DATE: 03/30/19 TIME: 16:58 Assessment/Plan VTE Prophylaxis Risk score (from Ns)>0 risk: 1 SCD applied (from Nsg): Yes Pharmacological prophylaxis: other Lines/Catheters IV [facility]ter [facility] (from [facility] Saline Lock Urinary Cath still in place: No Assessment/Plan Hospital Course S: Patient blood pressure slightly improved but still my normal range. Patient compliant with her blood pressure medicines. Seen by cardiology team earlier today. Still having some headache symptoms. U tox was positive for amphetamines and weed. O: VS- see below PHYSICAL EXAMINATION: GENERAL: Distress HEENT: left eye enucleation, but the right eye pupil is equal, round, react to light. Extraocular movement is intact. NECK: Supple, no thyromegaly. LUNGS: Clear to auscultation bilaterally. CARDIOVASCULAR: S1, S2 heard. No rubs or gallops. ABDOMEN: Soft, nontender, nondistended. Normal bowel sounds. No rebound or guarding. MUSCULOSKELETAL: No lower extremity edema bilaterally. NEUROLOGIC: No focal deficits. 2D echo: Conclusions: Normal left ventricular systolic function. Normal left ventricular cavity size. Severe concentric left ventricular hypertrophy. Ejection fraction is visually estimated at 50-60 %. Tissue Doppler/Mitral Doppler indices are most consistent with pseudonormalization with mildly elevated left atrial pressure (Stage II diastolic dysfunction), patient couldn't Valsalva has too much pain. E/E'= 17. No left ventricular outflow tract gradient at rest. There is severe enlargement of left atrium that is best appreciated by PAULINA of 51 cm/m2. Normal appearance of the mitral valve. Mitral valve leaflets appear mildly thickened. Mild to moderate mitral valve regurgitation. Normal appearance of the aortic valve. No significant aortic stenosis or insufficiency. Normal trileaflet aortic valve structure. Normal appearance of the tricuspid valve. Estimated peak PA systolic pressure 66 mmHg. There is moderate tricuspid regurgitation. Normal size and normal respiratory collapse consistent with normal right atrial pressure. ASSESSMENT AND PLAN: 44-year-old female with abdominal pain, nausea, vomiting that began last night, also with hypertensive urgency, history of myocardial infarction x2 in the past with prior stroke in the past. 1. Hypertensive urgency-blood pressure still systolic in the 160-180 range. She received multiple blood pressure medicines in the ER. - continue with beta-lior twice a day, Aldactone, hydrochlorothiazide and also hydralazine IV p.r.n. we will also add PRN IV Vasotec - Follow-up recommendations from cardiology consult. 2. Nausea, vomiting -improving now, likely secondary to #1 and uncontrolled hypertension. -Monitor, continue antiemetics Reglan and Zofran p.r.n. 3. CAD with myocardial infarction in the past-out for ACS here patient denies chest pain, first troponin is negative (Per records patient has strong family history of [place] as well) -Monitor blood pressure -Follow-up cardiology consult rec's 4. History of left eye enucleation- Again, she follows with the care there at [facility] for that. - Continue to monitor for now, Again she is apparently awaiting possible prosthetic left eye insertion at their hospital in the next month or so. 5. History of marijuana use and alcohol use. -Counseled on cessation. - Monitor for signs of withdrawal-of note drug screen positive for amphetamine and with this admission 6. Gastrointestinal prophylaxis. H2 lior. 7. Deep venous thrombosis prophylaxis. SCDs. Result Diagram: 03/30/19 0730 03/30/19 0730 Results 24hrs Laboratory Tests Test 03/29/19 17:09 03/30/19 07:30 Troponin I 0.034 White Blood Count 9.0 # Red Blood Count 4.63 Hemoglobin 13.5 Hematocrit 40.7 Mean Corpuscular Volume 87.9 Mean Corpuscular Hemoglobin 29.2 Mean Corpuscular Hemoglobin Concent 33.2 Red Cell Distribution Width 15.2 H Platelet Count 194 Mean Platelet Volume 11.8 H Immature Granulocytes % 0.200 Neutrophils % 69.6 Lymphocytes % 19.9 Monocytes % 8.0 Eosinophils % 1.6 Basophils % 0.7 Nucleated Red Blood Cells % 0.0 Immature Granulocytes # 0.020 Neutrophils # 6.2 Lymphocytes # 1.8 Monocytes # 0.7 Eosinophils # 0.1 Basophils # 0.1 Nucleated Red Blood Cells # 0.0 Sodium Level 137 Potassium Level 3.4 L Chloride Level 102 Carbon Dioxide Level 28 Anion Gap 7 Blood Urea Nitrogen 23 H Creatinine 0.97 Est Glomerular Filtrat Rate mL/min > 60 Glucose Level 103 Calcium Level 8.5 Exam/Review of Systems Exam Vitals Vital Signs Date Temp Pulse Resp B/P (MAP) Pulse Ox O2 O2 Flow FiO2 Time Delivery Rate 5/12/19 59 16:40 03/30/19 98.1 16 180/114 98 15:58 (136) 03/28/19 Room Air 20:08 Intake and Output 03/29/19 03/29/19 03/30/19 1515:00 23:00 07:00 IntakeIntake Total 900 ml 600 ml BalanceBalance 900 ml 600 ml Results Results 24hrs Laboratory Tests Test 03/29/19 17:09 03/30/19 07:30 Troponin I 0.034 White Blood Count 9.0 # Red Blood Count 4.63 Hemoglobin 13.5 Hematocrit 40.7 Mean Corpuscular Volume 87.9 Mean Corpuscular Hemoglobin 29.2 Mean Corpuscular Hemoglobin Concent 33.2 Red Cell Distribution Width 15.2 H Platelet Count 194 Mean Platelet Volume 11.8 H Immature Granulocytes % 0.200 Neutrophils % 69.6 Lymphocytes % 19.9 Monocytes % 8.0 Eosinophils % 1.6 Basophils % 0.7 Nucleated Red Blood Cells % 0.0 Immature Granulocytes # 0.020 Neutrophils # 6.2 Lymphocytes # 1.8 Monocytes # 0.7 Eosinophils # 0.1 Basophils # 0.1 Nucleated Red Blood Cells # 0.0 Sodium Level 137 Potassium Level 3.4 L Chloride Level 102 Carbon Dioxide Level 28 Anion Gap 7 Blood Urea Nitrogen 23 H Creatinine 0.97 Est Glomerular Filtrat Rate mL/min > 60 Glucose Level 103 Calcium Level 8.5 Medications Medication Current Medications IV Flush (NS 3 ml) 3 ml PER PROTOCOL IV ; Start 03/28/19 at 19:00 Metoclopramide HCl (Reglan) 10 mg Q6H PRN IV NAUSEA/VOMITING; Start 03/28/19 at 19:00 Acetaminophen (Tylenol Tab) 650 mg Q6H PRN PO .PAIN 1-3 OR TEMP; Start 03/28/19 at 19:00 Acetaminophen/ Hydrocodone Bitart ([place] (5/325)) 1 tab Q6H PRN PO .MOD PAIN 4- 6 Last administered on 03/30/19at 14:27; Admin Dose 1 TAB; Start 03/28/19 at 19:00 Morphine Sulfate (morphine) 2 mg Q4H PRN IV .SEVERE PAIN 7-10 Last administered on 03/30/19at 16:06; Admin Dose 2 MG; Start 03/28/19 at 19:00 Docusate Sodium (Colace) 100 mg Q12H PRN PO .CONSTIPATION; Start 03/28/19 at 19:00 Magnesium Hydroxide (Milk Of Mag) 30 ml DAILY PRN PO .CONSTIPATION; Start 03/28/19 at 19:00 Famotidine (Pepcid Iv) 20 mg DAILY IV Last administered on 03/30/19 08:19; Admin Dose 20 MG; Start 03/29/19 at 09:00 Lorazepam (Ativan) 0.5 mg Q6H PRN IV ANXIETY; Start 03/28/19 at 19:00 Albuterol/ Ipratropium (Duoneb) 3 ml Q4H RESP THERAPY PRN HHN SHORTNESS OF BREATH; Start 03/28/19 at 19:00 Hydralazine HCl (Apresoline) 10 mg Q6H PRN IV ELEVATED BLOOD PRESSURE Last administered on 03/29/19at 20:08; Admin Dose 10 MG; Start 03/28/19 at 19:00 Nitroglycerin (Nitroglycerin (Sl Tab) 0.4 Mg) 1 tab Q5M PRN SL ANGINA; Start 03/28/19 at 19:00 Aspirin (Ecotrin) 325 mg DAILY PO Last administered on 03/30/19 08:19; Admin Dose 325 MG; Start 03/29/19 at 09:00 Hydrochlorothiazide (Hydrochlorothiazide) 25 mg DAILY PO Last administered on 03/30/19 08:19; Admin Dose 25 MG; Start 03/29/19 at 09:00 Ondansetron HCl 8 mg/Sodium Chloride 54 ml @ 216 mls/hr Q6H PRN IV NAUSEA AND/OR VOMITING; Start 03/28/19 at 19:30 Carvedilol (Coreg) 12.5 mg Q8 PO Last administered on 03/30/19at 13:04; Admin Dose 12.5 MG; Start 03/29/19 at 15:30 Clonidine (Catapres) 0.1 mg Q4H PRN PO SBP>180 Last administered on 03/30/19at 05:25; Admin Dose 0.1 MG; Start 03/29/19 at 16:00 Spironolactone (Aldactone) 50 mg DAILY@0600 PO ; Start 03/31/19 at 06:00 SERGE IRENE March 30, 2019 17:11
[2019-03-30] MEDS: AZTREONAM 1 GM/NS (PMX) 50 ML IVPB SCH (17:45)
[2019-03-30] MEDS ORDERED: AZTREONAM 1 GM in SOD CHLORIDE 0.9% 100 ML IVPB SCH (18:30)
[2019-03-31] VITALS (16 sets, daily range): BP systolic 126–165; BP diastolic 60–111; PULSE 54–90; RESP 16–18
[2019-03-31] MEDS: DOCUSATE SODIUM 100 MG CAP PO PRN (03:20)
[2019-03-31] MEDS: SPIRONOLACTONE 50 MG TAB PO SCH (05:30)
[2019-03-31] MEDS: morphine 2 MG INJ IV PRN (05:33)
[2019-03-31] MEDS: HYDROCHLOROTHIAZIDE 25 MG TAB PO SCH (08:17)
[2019-03-31] MEDS: FAMOTIDINE 20 MG INJ IV SCH (08:17)
[2019-03-31] MEDS: AZTREONAM 1 GM/NS (PMX) 50 ML IVPB SCH (08:17)
[2019-03-31] MEDS: ASPIRIN (EC) 325 MG TAB PO SCH (08:17)
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
[2019-03-31] MEDS: TRIMETHOPRIM/SULFAMETHOX (DS) TAB PO SCH ×2 (12:07→20:31)
[2019-03-31] MEDS: AMLODIPINE 10 MG TAB PO SCH (12:07)
[2019-03-31] MEDS: LORAZEPAM 2 MG INJ IV PRN ×2 (12:12→22:49)
--- NOTE | 2019-03-31 18:46 | CONS ---
Assessment/Plan Assessment/Plan Hospital Course (Demo Recall) Hypertensive urgency-resolved Severe LVH Amphetamine use MR -BP trend improved -no further MALDONADO -titrate anti-HTN as needed Consultation Date/Type/Reason Admit Date/Time March 28, 2019 at 18:51 Initial Consult Date 03/29/19 Type of Consult Cardiology Requesting Provider: SERGE IRENE Date/Time of Note DATE: 03/31/19 TIME: 18:43 24 HR Interval Summary Free Text/Dictation no cp,sob,maldonado Exam/Review of Systems Vital Signs Vitals Vital Signs Date Temp Pulse Resp B/P (MAP) Pulse Ox O2 O2 Flow FiO2 Time Delivery Rate 03/31/19 73 16:00 03/31/19 98.1 16 126/60 100 15:37 (82) 03/28/19 Room Air 20:08 Intake and Output 03/30/19 03/30/19 03/31/19 1515:00 23:00 07:00 IntakeIntake Total 50 ml 600 ml BalanceBalance 50 ml 600 ml Exam Constitutional: alert, oriented (nad) Head: normocephalic Respiratory: clear to auscultation, normal air movement Cardiovascular: regular rate and rhythm, systolic murmur (s1s2) Gastrointestinal: soft, non-tender, bowel sounds Extremities: other (no edema) Labs Result Diagram: 03/31/19 0638 03/31/19 0638 Results 24hrs Laboratory Tests Test 03/31/19 06:38 White Blood Count 6.9 # Red Blood Count 4.34 Hemoglobin 12.6 Hematocrit 39.4 Mean Corpuscular Volume 90.8 Mean Corpuscular Hemoglobin 29.0 Mean Corpuscular Hemoglobin Concent 32.0 Red Cell Distribution Width 15.1 H Platelet Count 206 Mean Platelet Volume 11.8 H Immature Granulocytes % 0.300 Neutrophils % 68.7 Lymphocytes % 19.3 Monocytes % 8.2 Eosinophils % 2.8 Basophils % 0.7 Nucleated Red Blood Cells % 0.0 Immature Granulocytes # 0.020 Neutrophils # 4.7 Lymphocytes # 1.3 Monocytes # 0.6 Eosinophils # 0.2 Basophils # 0.1 Nucleated Red Blood Cells # 0.0 Sodium Level 137 Potassium Level 3.7 Chloride Level 100 Carbon Dioxide Level 30 Anion Gap 7 Blood Urea Nitrogen 26 H Creatinine 0.95 Est Glomerular Filtrat Rate mL/min > 60 Glucose Level 101 Calcium Level 9.0 Medications Medications Current Medications IV Flush (NS 3 ml) 3 ml PER PROTOCOL IV ; Start 03/28/19 at 19:00 Metoclopramide HCl (Reglan) 10 mg Q6H PRN IV NAUSEA/VOMITING; Start 03/28/19 at 19:00 Acetaminophen (Tylenol Tab) 650 mg Q6H PRN PO .PAIN 1-3 OR TEMP; Start 03/28/19 at 19:00 Acetaminophen/ Hydrocodone Bitart ([place] (5/325)) 1 tab Q6H PRN PO .MOD PAIN 4- 6 Last administered on 03/30/19 23:19; Admin Dose 1 TAB; Start 03/28/19 at 19:00 Morphine Sulfate (morphine) 2 mg Q4H PRN IV .SEVERE PAIN 7-10 Last administered on 03/31/19 05:33; Admin Dose 2 MG; Start 03/28/19 at 19:00 Docusate Sodium (Colace) 100 mg Q12H PRN PO .CONSTIPATION Last administered on 03/31/19 03:20; Admin Dose 100 MG; Start 03/28/19 at 19:00 Magnesium Hydroxide (Milk Of Mag) 30 ml DAILY PRN PO .CONSTIPATION; Start 03/28/19 at 19:00 Albuterol/ Ipratropium (Duoneb) 3 ml Q4H RESP THERAPY PRN HHN SHORTNESS OF BREATH; Start 03/28/19 at 19:00 Hydralazine HCl (Apresoline) 10 mg Q6H PRN IV ELEVATED BLOOD PRESSURE Last administered on 03/29/19at 20:08; Admin Dose 10 MG; Start 03/28/19 at 19:00 Nitroglycerin (Nitroglycerin (Sl Tab) 0.4 Mg) 1 tab Q5M PRN SL ANGINA; Start 03/28/19 at 19:00 Aspirin (Ecotrin) 325 mg DAILY PO Last administered on 03/31/19 08:17; Admin Dose 325 MG; Start 03/29/19 at 09:00 Hydrochlorothiazide (Hydrochlorothiazide) 25 mg DAILY PO Last administered on 03/31/19 08:17; Admin Dose 25 MG; Start 03/29/19 at 09:00 Ondansetron HCl 8 mg/Sodium Chloride 54 ml @ 216 mls/hr Q6H PRN IV NAUSEA AND/OR VOMITING; Start 03/28/19 at 19:30 Carvedilol (Coreg) 12.5 mg Q8 PO Last administered on 03/31/19 13:34; Admin Dose 12.5 MG; Start 03/29/19 at 15:30 Clonidine (Catapres) 0.1 mg Q4H PRN PO SBP>180 Last administered on 03/30/19 05:25; Admin Dose 0.1 MG; Start 03/29/19 at 16:00 Spironolactone (Aldactone) 50 mg DAILY@0600 PO Last administered on 03/31/19 05:30; Admin Dose 50 MG; Start 03/31/19 at 06:00 Enalaprilat (Vasotec Iv) 1.25 mg Q4H PRN IV ELEVATED BLOOD PRESSURE Last administered on 03/30/19at 17:11; Admin Dose 1.25 MG; Start 03/30/19 at 17:00 Lorazepam (Ativan) 1 mg Q6H PRN IV ANXIETY Last administered on 03/31/19 12:12; Admin Dose 1 MG; Start 03/31/19 at 13:00 Amlodipine Besylate (Norvasc) 10 mg DAILY PO Last administered on 03/31/19 12:07; Admin Dose 10 MG; Start 03/31/19 at 12:00 Trimethoprim/ Sulfamethoxazole (Bactrim (Ds)) 1 tab BID PO Last administered on 03/31/19 12:07; Admin Dose 1 TAB; Start 03/31/19 at 12:00 Famotidine (Pepcid) 20 mg DAILY PO ; Start 04/01/19 at 09:00 Vini Quintero DO March 31, 2019 18:46
[2019-03-31] MEDS: HYDROCODONE/APAP (5/325) TAB PO PRN (20:31)
[2019-03-31] MEDS: hydrALAzine 20 MG INJ IV PRN (21:41)
[2019-04-01] VITALS (7 sets, daily range): BP systolic 135–147; BP diastolic 74–96; PULSE 67–84; RESP 16–18
[2019-04-01] MEDS: SPIRONOLACTONE 50 MG TAB PO SCH (05:20)
[2019-04-01] MEDS ORDERED: FAMOTIDINE 20 MG TAB PO SCH (09:00)
[2019-04-01] MEDS: HYDROCHLOROTHIAZIDE 25 MG TAB PO SCH (09:07)
[2019-04-01] MEDS: AMLODIPINE 10 MG TAB PO SCH (09:07)
[2019-04-01] MEDS: ASPIRIN (EC) 325 MG TAB PO SCH (09:08)
[2019-04-01] MEDS: TRIMETHOPRIM/SULFAMETHOX (DS) TAB PO SCH (09:08)
[2019-04-01] MEDS: DOCUSATE SODIUM 100 MG CAP PO PRN (09:47)
[2019-04-01] MEDS ORDERED: AMLO-147 PO (11:19)
[2019-04-01] MEDS ORDERED: CARV12.579 PO (11:19)
[2019-04-01] MEDS ORDERED: CLON0.1T14 PO (11:19)
--- NOTE | 2019-04-01 11:20 | PDOCDIS ---
Discharge Instructions DIAGNOSIS Discharge Diagnosis Hypertensive urgency CONDITION [id number] Patient Condition: [id number] Good HOME CARE INSTRUCTIONS: [id number] Diet Instructions: [id number] Regular ACTIVITY: [id number] Activity Restrictions: [id number] No Restrictions FOLLOW UP/APPOINTMENTS Follow-up Plan 1. Take all medications as prescribed. 2. See your primary care doctor in 1-2 weeks. 3. Return to the emergency room if you develop pressure-like chest pain with activity that does not improve with rest. DEDE ALLISON MD April 01, 2019 11:20
--- NOTE | 2019-04-01 18:10 | DS ---
Date/Time of Note Date/Time of Note DATE: 04/01/19 TIME: 17:59 Discharge Summary Admission/Discharge Info Admit Date/Time March 28, 2019 at 18:51 Discharge Date/Time April 01, 2019 at 15:10 Discharge Diagnosis Hypertensive urgency Patient Condition: Good Hx of Present Illness CHIEF COMPLAINT: Abdominal pain, nausea, vomiting, uncontrolled blood pressure. HISTORY OF PRESENT ILLNESS: A 44-year-old female with past medical history of eye surgery secondary to severe left eye viral infection, [place] x2 in the past with stent placement, possible seizure disorder in the past, stroke in 2002, who comes in after experiencing abdominal pain and cramping, also with some nonbilious, nonbloody vomiting symptoms that started last night. She describes the nausea, vomiting as severe. Apparently, she ate some coffee cake that was in her purse for a day and initially thought that was the source of her abdominal pain, nausea, vomiting symptoms. She had some small amount of diarrhea, but no fevers or chills, no upper or lower GI bleeding. She decided to come into the ER. When she came, the patient is having significant vomiting symptoms. She was also found with severe hypertensive urgency, systolic blood pressure 212 over diastolic of 155. She received multiple blood pressure medicines in the ER including Norvasc 10 mg p.o., Coreg 25 mg p.o., hydralazine 20 mg IV and Vasotec 1.25 mg IV and the blood pressure systolic is presently in the 189 to 190 range. She is still having significant nausea, vomiting symptoms as well. Denies any drug use and again, the patient says she had a severe left eye infection that led to an eye surgery removal performed in 02/2019 to [facility] and is scheduled to go back there in the next few weeks for a prosthetic eye to be placed. When she came in also, she was found with elevated BNP of 6700. The troponin has been negative x1. PAST MEDICAL HISTORY: As above. ALLERGIES: PENICILLIN. HOME MEDICATIONS: Apparently she takes: 1. Norvasc 10 mg twice a day. 2. Zofran 4 mg q.8 hours p.r.n. PAST SURGICAL HISTORY: Plastic surgery, right arm in the past and also belly button surgery in 1978 and also left eye surgery earlier this year. SOCIAL HISTORY: Occasional alcohol use. She does admit to smoking marijuana and also using tobacco cigarette, smokes a few cigarettes a day for many years. Denies any drug use. FAMILY HISTORY: Noncontributory. Hospital Course The patient was admitted to telemetry. She was restarted on home antihypertensives. Troponins were trended and they were negative. Urine toxicology was positive for cannabis and amphetamines. The patient denied meth use. Her nausea and vomiting resolved. The blood pressure came under control and she was discharged on home BP meds. Home Meds Active Scripts Clonidine Hcl* (Catapres*) 0.1 Mg Tablet, 0.1 MG PO DAILY PRN for SBP>180, #30 TAB 3 Refills Prov:DEDE ALLISON MD 04/01/19 Carvedilol* (Carvedilol*) 12.5 Mg Tablet, 25 MG PO BID, #60 TAB 3 Refills Prov:DEDE ALLISON MD 04/01/19 Amlodipine Besylate* (Amlodipine Besylate*) 10 Mg Tablet, 10 MG PO DAILY, #60 TAB 3 Refills Prov:DEDE ALLISON MD 04/01/19 Ondansetron Hcl* (Zofran*) 4 Mg Tablet, 4 MG PO Q8H PRN for NAUSEA AND/OR VOMITING, #30 TAB Prov:ELIZ SOUTH 03/28/19 Discontinued Reported Medications Multivit/Min/Fol Ac/Iron/Pren* ( S*) 1 Tab Tab, 1 TAB PO DAILY, TAB 05/13/14 [denies new meds/allergies] No Conflict Check 03/17/13 [None] No Conflict Check 04/08/11 Follow-up Plan 1. Take all medications as prescribed. 2. See your primary care doctor in 1-2 weeks. 3. Return to the emergency room if you develop pressure-like chest pain with activity that does not improve with rest. Primary Care Provider Leda Valderrama Time spent on discharge: > 30 minutes Pending Labs Laboratory Tests Test 04/01/19 06:28 White Blood Count 7.0 10^3/ul (4.8-10.8) Red Blood Count 4.26 10^6/ul (4.20-5.40) Hemoglobin 12.4 g/dl (12.0-16.0) Hematocrit 38.2 % (37.0-47.0) Mean Corpuscular Volume 89.7 fl (82.0-101.0) Mean Corpuscular Hemoglobin 29.1 pg (29.0-33.0) Mean Corpuscular Hemoglobin Concent 32.5 g/dl (32.0-37.0) Red Cell Distribution Width 15.0 % (11.5-14.5) Platelet Count 193 10^3/UL (140-415) Mean Platelet Volume 11.5 fl (7.4-10.4) Immature Granulocytes % 0.300 % (0.001-0.429) Neutrophils % 63.2 % (39.0-77.0) Lymphocytes % 20.3 % (15.0-51.0) Monocytes % 11.6 % (0.0-11.0) Eosinophils % 3.6 % (0.0-7.0) Basophils % 1.0 % (0.0-2.0) Nucleated Red Blood Cells % 0.0 /100WBC (0.0-0.0) Immature Granulocytes # 0.020 10^3/ul (0.0-0.031) Neutrophils # 4.4 10^3/ul (1.6-7.5) Lymphocytes # 1.4 10^3/ul (0.8-2.9) Monocytes # 0.8 10^3/ul (0.3-0.9) Eosinophils # 0.3 10^3/ul (0.0-0.5) Basophils # 0.1 10^3/ul (0.0-0.1) Nucleated Red Blood Cells # 0.0 10^3/ul (0.0-0.0) Sodium Level 136 mmol/L (135-144) Potassium Level 3.9 mmol/L (3.5-5.1) Chloride Level 101 mmol/L (97-110) Carbon Dioxide Level 27 mmol/L (21-31) Anion Gap 8 (5-13) Blood Urea Nitrogen 25 mg/dl (7-20) Creatinine 1.07 mg/dl (0.44-1.00) Est Glomerular Filtrat Rate mL/min > 60 mL/min (>60) Glucose Level 94 mg/dl (70-220) Calcium Level 9.2 mg/dl (8.4-10.2) DEDE ALLISON MD April 01, 2019 18:09
== END 2019-04-01 15:10 | disposition home or self-care (01) | DRG 305 ==
LOC: E/R 09:23 → SUATTDRO 18:26 → TEL 18:51
PROVIDERS: ADMIT Hospitalist; ATTEND Internal Medicine
DX: I16.0 Hypertensive urgency (principal); N39.0 Urinary tract infection, site not specified; I25.10 Atherosclerotic heart disease of native coronary artery without angina pectoris; I25.2 Old myocardial infarction; F17.210 Nicotine dependence, cigarettes, uncomplicated; F12.90 Cannabis use, unspecified, uncomplicated; N18.9 Chronic kidney disease, unspecified; I13.10 Hypertensive heart and chronic kidney disease without heart failure, with stage 1 through stage 4 chronic kidney disease, or unspecified chronic kidney disease; F15.90 Other stimulant use, unspecified, uncomplicated; Z88.0 Allergy status to penicillin; Z90.01 Acquired absence of eye; Z86.73 Personal history of transient ischemic attack (TIA), and cerebral infarction without residual deficits; Z95.5 Presence of coronary angioplasty implant and graft
CPT/HCPCS: 36415; 70450; 71045; 74176; 80048; 80053; 80061; 80307; 81001; 83036; 83690; 83735; 83880; 84100; 84439; 84443; 84484; 84703; 85025; 87086; 92610; 93005; 93306; 96374; 96375; 96376; J0360; J2060; J2270; J2405; J7030

== ENCOUNTER 2019-06-19 13:36 | Emergency (ER) | payer OTHER ==
[~2019-06-19] VITALS: Ht 157.5 cm; Wt 75.0 kg
[~2019-06-19 13:36] MED LIST changes: +AMLO-147 PO; +CARV12.579 PO; +CIPR500T4 PO; +CLON0.1T14 PO; +ONDA4TAB8 PO; -PRENAT PO; -denies new meds/allergies
[2019-06-19 13:42] VITALS: Ht 157.5 cm; Wt 75.0 kg
[2019-06-19] MEDS ORDERED: SOD CHLORIDE 0.9% 1,000 ML IV STA (13:48)
[2019-06-19] MEDS ORDERED: KETOROLAC 30 MG INJ IV STA (13:48)
[2019-06-19] MEDS ORDERED: ONDANSETRON 4 MG INJ IV STA ×2 (13:48→14:39)
[2019-06-19] MEDS ORDERED: morphine 4 MG/ML VIAL IV STA (13:48)
--- NOTE | 2019-06-19 14:00 | ERD ---
ER Documentation Chief Complaint Chief Complaint LEFT FLANK PAIN SINCE YESTERDAY,HX KIDNEY STONE HPI This is a 44-year-old female that states she is a past medical history of hypertension, stage II kidney disease taking Norvasc and clonidine. The patient smokes tobacco. She presents to the emergency department today stating that for the past 24 hours she has been having severe left flank pain. The pain is 10 out of 10 in intensity. It has been intermittent progressively getting worse. She had no fevers or shaking no chills. Indicates she has had similar pain in the past when diagnosed with kidney stones. She denies any hematuria. She indicates there is no alleviating or exacerbating factors to the pain. It is a sharp shooting pain. It has progressed to the left lower quadrant which prompted her to come to the emergency department to be further evaluated. She did not take any analgesic medication prior to arrival. She denies any fever shaking or chills. No chest pain or pressure. ROS All systems reviewed and are negative except as per history of present illness. Medications Home Meds Active Scripts Clonidine Hcl* (Catapres*) 0.1 Mg Tablet, 0.1 MG PO DAILY PRN for SBP>180, #30 TAB 3 Refills Prov:DEDE ALLISON MD 04/01/19 Amlodipine Besylate* (Amlodipine Besylate*) 10 Mg Tablet, 10 MG PO DAILY, #60 TAB 3 Refills Prov:DEDE ALLISON MD 04/01/19 Ondansetron Hcl* (Zofran*) 4 Mg Tablet, 4 MG PO Q8H PRN for NAUSEA AND/OR VOMITING, #30 TAB Prov:ELIZ SOUTH 03/28/19 Reported Medications Carvedilol* (Carvedilol*) 12.5 Mg Tablet, 12.5 MG PO BID, #60 TAB 06/19/19 Discontinued Scripts Carvedilol* (Carvedilol*) 12.5 Mg Tablet, 25 MG PO BID, #60 TAB 3 Refills Prov:DEDE ALLISON MD 04/01/19 Allergies Allergies: Coded Allergies: Penicillins (Verified Allergy, Unknown, 06/19/19) PMhx/Soc History of Surgery: Yes (STENTS 2018,RIGHT ARM AND BELLY BUTTON SX 1978,L EYE SX) Anesthesia Reaction: No Hx Neurological Disorder: Yes (SEIZURE) Hx Respiratory Disorders: No Hx Cardiac Disorders: No (HX OF HEART ATTACK WITH STENTS) Hx Psychiatric Problems: Yes (ANXIETY) Hx Miscellaneous Medical Probl: No Hx Alcohol Use: Yes (0CCASSIONAL) Hx Substance Use: Yes Hx Tobacco Use: Yes (CIGARETTE 8 STICKS/DAY) Physical Exam Vitals Vital Signs Date Temp Pulse Resp B/P (MAP) Pulse Ox O2 O2 Flow FiO2 Time Delivery Rate 06/19/19 98.2 79 12 175/94 99 Room Air 17:50 (121) 06/19/19 98.2 84 12 168/94 99 Room Air 16:10 (118) 06/19/19 98.2 66 12 215/120 99 Room Air 15:07 (151) 06/19/19 98.2 76 18 257/134 99 13:42 (175) Physical Exam Constitutional:Well-developed. Well-nourished. Patient was tearful and appeared to be in a significant amount discomfort secondary to pain HEENT:Normocephalic. Atraumatic.Pupils were equal round reactive to light. Moist mucous membranes.No tonsillar exudates. Neck: No nuchal rigidity. No lymphadenopathy. No posterior cervical spine tenderness or step-offs. Respiratory: Not using accessory muscles of respiration.Lungs were clear to auscultation bilaterally. No rhonchi. No rales. No wheezing. Cardiovascular: Regular rate regular rhythm.No murmurs. No rubs were appreciated.S1, S2 normal. Distal pulses are palpable 2+ bilaterally. GI: Abdomen was soft. Left CVA tenderness. Non Distended. No pulsatile abdominal masses or bruits. No rebound. No guarding. Bowel sounds were present and normal. Muscle skeletal: Full range of motion of both the upper and lower extremities bilaterally.Normal muscle tone.No assymetrical calf tenderness or swelling. Skin: No petechia, no purpura. No lesions on the palms or the soles of the feet. No maculopapular rash. NEURO: Patient was alert, awake, orientated x3.No facial droop. Gait observed and patient had difficulty walking due to the pain but no ataxia.Speech had regular rate and rhythm. No focal neurological deficits. Result Diagram: 06/19/19 1410 06/19/19 1410 Results 24 hrs Laboratory Tests Test 06/19/19 14:10 06/19/19 16:37 White Blood Count 8.1 10^3/ul Red Blood Count 4.45 10^6/ul Hemoglobin 12.7 g/dl Hematocrit 39.2 % Mean Corpuscular Volume 88.1 fl Mean Corpuscular Hemoglobin 28.5 pg Mean Corpuscular Hemoglobin Concent 32.4 g/dl Red Cell Distribution Width 15.9 % Platelet Count 215 10^3/UL Mean Platelet Volume 10.6 fl Immature Granulocytes % 0.100 % Neutrophils % 79.6 % Lymphocytes % 14.0 % Monocytes % 4.7 % Eosinophils % 0.9 % Basophils % 0.7 % Nucleated Red Blood Cells % 0.0 /100WBC Immature Granulocytes # 0.010 10^3/ul Neutrophils # 6.5 10^3/ul Lymphocytes # 1.1 10^3/ul Monocytes # 0.4 10^3/ul Eosinophils # 0.1 10^3/ul Basophils # 0.1 10^3/ul Nucleated Red Blood Cells # 0.0 10^3/ul Prothrombin Time 13.0 Sec Prothrombin Time Ratio 1.0 INR International Normalized Ratio 0.97 Activated Partial Thromboplast Time 25.7 Sec Sodium Level 140 mmol/L Potassium Level 3.3 mmol/L Chloride Level 103 mmol/L Carbon Dioxide Level 28 mmol/L Anion Gap 9 Blood Urea Nitrogen 8 mg/dl Creatinine 0.89 mg/dl Est Glomerular Filtrat Rate mL/min > 60 mL/min Glucose Level 120 mg/dl Calcium Level 9.6 mg/dl Total Bilirubin 0.5 mg/dl Direct Bilirubin 0.00 mg/dl Indirect Bilirubin 0.5 mg/dl Aspartate Amino Transf (AST/SGOT) 24 IU/L Alanine Aminotransferase (ALT/SGPT) 19 IU/L Alkaline Phosphatase 86 IU/L Total Protein 8.2 g/dl Albumin 4.7 g/dl Globulin 3.50 g/dl Albumin/Globulin Ratio 1.34 Urine Color STRAW Urine Clarity CLEAR Urine pH 8.0 Urine Specific Morrice 1.010 Urine Ketones NEGATIVE mg/dL Urine Nitrite NEGATIVE mg/dL Urine Bilirubin NEGATIVE mg/dL Urine Urobilinogen NEGATIVE mg/dL Urine Leukocyte Esterase 1+ Haily/ul Urine Microscopic RBC 102 /HPF Urine Microscopic WBC 37 /HPF Urine Bacteria FEW /HPF Urine Mucus FEW /HPF Urine Hemoglobin 3+ mg/dL Urine Glucose 1+ mg/dL Urine Total Protein NEGATIVE mg/dl POC Beta HCG, Qualitative NEGATIVE Current Medications Medications Dose Sig/Catarino Start Time Status Last (Trade) Ordered Route PRN Stop Time Admin Dose Reason Admin Sodium 1,000 ml @ Q1H STAT 06/19/19 DC 06/19/19 Chloride 1,000 mls/hr IV 13:48 06/19/19 14:10 14:47 Morphine 4 mg ONCE STAT 06/19/19 DC 06/19/19 Sulfate IV 13:48 06/19/19 14:11 (morphine) 13:52 Ondansetron 4 mg ONCE STAT 06/19/19 DC 06/19/19 HCl (Zofran IV 13:48 06/19/19 14:11 Inj) 13:52 Ketorolac 30 mg ONCE STAT 06/19/19 DC 06/19/19 Tromethamine IV 13:48 06/19/19 14:11 (Toradol) 13:52 1 mg ONCE STAT 06/19/19 DC 06/19/19 Hydromorphone IV 14:39 06/19/19 14:48 HCl 14:41 (Dilaudid) Ondansetron 4 mg ONCE STAT 06/19/19 DC 06/19/19 HCl (Zofran IV 14:39 06/19/19 14:47 Inj) 14:41 Nicardipine 30 mg ONCE ONCE 06/19/19 DC 06/19/19 HCl PO 15:00 06/19/19 14:47 (Cardene) 15:01 Procedures/MDM The patient presented to the emergency department with flank pain. My differential diagnosis included but was not limited to spinal origins of the pain such as fracture, osteomyelitis, epidural abscess, neoplasm, spondylolishtesis, discogenic, cauda equina syndrome or musculoligamentous. Nonspinal causes such as AAA, upper UTI, renal colic, aortic dissection, abdominal neoplasm were also considered as an etiology into their pain. The patient was immediately placed in a threat monitoring analyst continuous pulse oximetry and IV access was attempted by nursing staff. The patient was given intravenous morphine Zofran and Toradol for analgesia control. I obtained an ultrasound of the kidney in order to rule out for obstructive uropathy. Left nephrolithiasis with no evidence of hydronephrosis and there was a moderate amount of debris within the urinary bladder seen on the renal ultrasound. Urinalysis did confirm a urinary tract infection. The patient has an allergy to penicillin. The patient will be sent home with ciprofloxacin. Observation Note: Time: 4 hours Family Hx: No Hypertension Evaluation: Multiple exams showed improving symptoms and no evidence of pyelonephritis. The patient has a history of hypertension. She was hypertensive in the emergency department however there is no signs of endorgan damage to suggest hypertensive emergency or urgency. She did receive clonidine and after receiving analgesic medication her blood pressure had improved. The patient was discharged home in fair condition. They were instructed to return to the emergency department at any time if there was any worsening of their condition. The patient stated they would follow up with their PCP in the next 24-48 hours to initiate a suitable medication regimen under the care of their PCP as well as to allow their PCP to monitor any drug reactions. The patient was discharged home with prescriptions after they gave informed consent to the new medication. They were also fully informed by myself on the adverse effects and adverse drug interactions in order to provide adequate safeguards to prevent possible adverse reactions to medications. Critical Care: Time: 35 minutes Treatments/Evaluations: Close monitoring and treatment of unstable vital signs, cardiorespiratory, and neurologic status, while maintaining tight balance of fluid, respiratory, and cardiac interventions. Time does not include performing any of the above billable procedures. Departure Diagnosis: Primary Impression: Nephrolithiasis Additional Impression: Accelerated hypertension Condition: Fair SILVIO LEVINE MD Jun 19, 2019 14:00
[2019-06-19] MEDS ORDERED: HYDROmorphONE 1 MG/ML SYG IV STA (14:39)
[2019-06-19] MEDS ORDERED: NICARDipine HCL 30 MG CAPSULE PO ONE (15:00)
[2019-06-19 19:53] VITALS: BP 151/97; PULSE 68; RESP 12
== END 2019-06-19 19:53 | disposition home or self-care (01) ==
LOC: E/R 13:36
DX: N20.0 Calculus of kidney (principal); I12.9 Hypertensive chronic kidney disease with stage 1 through stage 4 chronic kidney disease, or unspecified chronic kidney disease; N18.2 Chronic kidney disease, stage 2 (mild); F17.210 Nicotine dependence, cigarettes, uncomplicated; Z98.61 Coronary angioplasty status
CPT/HCPCS: 76775; 80053; 81001; 81025; 85025; 85610; 85730; 87086; 96361; 96374; 96375; 96376; J1170; J1885; J2270; J2405; J7030; Z7502; Z7610